=== PATIENT | female | born 1985 | race Caucasian/White ===

== ENCOUNTER 2017-01-20 14:00 | Inpatient (IN) | payer MEDICAID ==
[~2017-01-20] VITALS: Ht 152.4 cm; Wt 65.5 kg
[~2017-01-20 14:00] MED LIST: CALC-516 PO; FERR240T9 PO; PERCOCET PO; PREN-39 PO
[2017-01-23] MEDS ORDERED: OXYTOCIN 30 UNITS/LR 500 ML IV SCH (11:30)
[2017-01-23] MEDS ORDERED: CARBOPROST 250 MCG INJ IM PRN ×2 (11:30→18:00)
[2017-01-23] MEDS ORDERED: CEFAZOLIN 2 GM/50 ML (PMX) 50 ML IV SCH (11:30)
[2017-01-23] MEDS ORDERED: MISOPROSTOL 200 MCG TAB PR PRN ×2 (11:30→18:00)
[2017-01-23] MEDS ORDERED: OXYTOCIN 30 UNITS/LR 500 ML IV PRN ×2 (11:30→18:00)
[2017-01-23] MEDS ORDERED: METHYLERGONOVINE 0.2 MG INJ IM PRN ×2 (11:30→18:00)
[2017-01-23 11:46] VITALS: Ht 152.4 cm; Wt 65.5 kg
[2017-01-23 11:47] VITALS: BP 127/84; PULSE 92; RESP 18
[2017-01-23] MEDS: LACTATED RINGER'S 1,000 ML IV SCH ×4 (11:52→20:48)
[2017-01-23 12:09] LABS: BASOPHILS % 0.4 % (0.0-2.0); EOSINOPHILS # 0.1 10^3/ul (0.0-0.5); EOSINOPHILS % 1.1 % (0.0-7.0); HEMATOCRIT 34.2 % (37.0-47.0); HEMOGLOBIN 11.8 g/dl (12.0-16.0); LYMPHOCYTES # 1.5 10^3/ul (0.8-2.9); LYMPHOCYTES % 19.8 % (15.0-51.0); MEAN CORPUSCULAR HEMOGLOBIN 29.5 pg (29.0-33.0); MEAN CORPUSCULAR HGB CONC 34.5 g/dl (32.0-37.0); MEAN CORPUSCULAR VOLUME 85.5 fl (82.0-101.0); MEAN PLATELET VOLUME 9.9 fl (7.4-10.4); MONOCYTE # 0.5 10^3/ul (0.3-0.9); MONOCYTES % 6.1 % (0.0-11.0); NEUTROPHIL # 5.3 10^3/ul (1.6-7.5); NEUTROPHILS % 71.7 % (39.0-77.0); PLATELET COUNT 174 10^3/UL (140-415); RED CELL DISTRIBUTION WIDTH 12.9 % (11.5-14.5); WHITE BLOOD COUNT 7.4 10^3/ul (4.8-10.8)
[2017-01-23 12:21] LABS: INR 0.91; PROTIME 12.2 Sec (12.2-14.2)
[2017-01-23 12:22] LABS: PARTIAL THROMBOPLASTIN TIME 26.4 Sec (25.0-35.0)
[2017-01-23] MEDS ORDERED: FENTAnyl 50 MCG/ML VIAL ONE (13:48)
[2017-01-23] MEDS ORDERED: morphine SULFATE/PF (10 MG/10 ML) INJ ONE (13:48)
[2017-01-23] MEDS ORDERED: PHENYLephrine (100 MCG/ML) 5ML SYG ONE (14:04)
[2017-01-23] MEDS ORDERED: ONDANSETRON 4 MG INJ ONE (14:06)
[2017-01-23] MEDS ORDERED: DEXAMETHASONE 4 MG/ML 1 ML INJ ONE (14:07)
[2017-01-23] MEDS ORDERED: OXYTOCIN 30 UNITS/LR 500 ML IV ONE (14:48)
[2017-01-23] MEDS ORDERED: NALOXONE (0.4 MG/ML) INJ IV PRN (15:00)
[2017-01-23] MEDS ORDERED: HYDROmorphONE 0.5 MG/0.5 ML SYG IV PRN ×2 (15:00)
[2017-01-23] MEDS ORDERED: NALBUPHINE HCL (10 MG/1 ML) INJ IV PRN (15:00)
[2017-01-23] MEDS ORDERED: DIPHENHYDRAMINE 50 MG INJ IV PRN (15:00)
[2017-01-23] MEDS ORDERED: ZOLPIDEM 5 MG TAB PO PRN (15:00)
--- NOTE | 2017-01-23 15:04 | HP ---
Date/Time of Note Date/Time of Note DATE: 01/23/17 TIME: 15:00 OB - History Hx of Present Free Text/Dictation Admitted for repeat at term Last Menstrual Period: May 04, 2016 Estimated Due Date: Jan 30, 2017 : 4 Para: 3 Care: Good Care Obstetrical Complications: Other (Elevated markers including inhibin) Medical Complications: Other (Previous 2) Past Family/Social History * Past Medical, Surgical, Family and Obstetric Histories reviewed from chart. Blood Type: O+ Rubella: immune RPR/VDRL: Negative GBS Status: Negative HBsAG: Negative OB Admission Exam Vital Signs Vital Signs Vital Signs Date Time Temp Pulse Resp B/P Pulse Ox O2 Delivery O2 Flow Rate FiO2 01/23/17 11:47 97.8 92 18 127/84 98 Room Air Physical Exam HEENT: WNL Heart: Rhythm Normal Lungs: Clear, Equal Abdomen: WNL Extremities: Normal Reflexes: Normal Cervical Dilatation: None Effacement: 0% Station: -3 Membranes: Intact Heart Rate: 140's Accelerations: Accelerations Present Decelerations: No Decelerations Varibility: Marked Contractions on Admission: None Last 72 hours Lab Results CBC & BMP 01/23/17 11:40 OB Assessment/Plan Reason for admission: section Other Assessment: Term gestation Previous Desires sterilization Other plan: Repeat section and tubal ligation Patient had good awareness of nature and complications of C/S procedure including but but limited to infection and hemorrhage. Permanency and failure of tubal ligation procedure asa well as its future complications including but not limited to pelvic pain or ectopic were also clear to the patient and agreed to undergo C/S + BTL STONEY ROTHMAN MD Jan 23, 2017 15:04
--- NOTE | 2017-01-23 15:07 | OPR ---
Operative Report Planned Procedure Procedure date Jan 23, 2017 Procedure(s) Repeat section and bilateral tubal ligation Performed by see signature line Assisting provider: NICOLAS VO MD Anesthesiologist: FRANKIE KWOK DO Pre-procedure diagnosis Term gestation Previous section Desires sterilization Anesthesia Type: spinal Procedure Description Under satisfactory anaesthesia a Pfannenstiel incision was made two fingerbreadth above and parallel to the symphysis of pubis around the previous scar and previous scar was removed Incision was extended laterally to the border of the Recti muscles on either sides. Incision was carried down with sharp and blunt dissection until fascia was reached. Anterior Recti muscle fascia was incised in mid portion and incision extended laterally to the border of skin incision. Fascia was mobilized from muscle superiorly and Recti muscles were from midline using sharp and blunt dissection. Peritoneum was visualized; Avoiding bowel and bladder it was incised . Incision was extended superiorly and inferiorly. Bladder blade was placed. Posterior peritoneum covering the lower segment of the uterus and lower segment of the uterus were incised.Low transverse uterine incision was made on lower segment of the uterus. Incision extended laterally to the border of Round Lig. on either sides and baby was delivered from OT. position . Amniotic fluid appeared clear. Cord blood was obtained and cord had 3 vessels . Placenta was delivered spontaneously and appeared intact and complete. Intrauterine cavity was rubbed with a laparotomy sponge. Uterine incision was closed in 2 layers using running stitches of No1 Monocryl. Hemostasis appeared secure. Ovaries and Fallopian tubes were within normal limits. Bilateral Tubal Ligation was performed by following procedure: R fallopian tube was raised in mid portion; a Patricia clamp was placed below the fimbriae extending to proximal portion of the fallopian tube. Another clamp was placed parallel to the first and after incising the fallopian tube the stump was sutured using 0 Vicryl stitch. Hemostasis was secure . Same procedure was done on fallopian tube on the opposite side. Hemostasis appeared to be secure on ligated sites of either fallopian tubes. Announcing needle, lap sponge and instrument count to be correct abdomen was closed in layers as follows: Peritoneum and Recti muscles with running stitches of 20 Vicryl. Fascia with running stitch of No 1 PDS. Subcutaneous tissue with running stitches of 20 Chromic and skin was closed using cici. Patient tolerated the procedure well and was transferred to [facility] in good condition. Post-Procedure Post-procedure diagnosis Status post repeat and tubal ligation Findings: Live Baby Estimated blood loss: other (500 cc) Specimen(s): yes (see below) Specimen(s) description Segments of right and left fallopian tubes Grafts/Implants: no Complication(s): no Pt Condition post procedure: stable Disposition: PACU Physician Certification I, the undersigned physician, hereby certify that I have discussed the procedure described in this consent form with this patient (or the patient's legal in store representative), including: * The risk and benefits of the procedure; * Any adverse reactions that may reasonably be expected to occur; * Any alternative efficacious methods of treatment which may be medically viable ; * The potential problems that may occur during recuperation; * Potential for blood transfusion and associated risks/benefits; and * Any research or economic interest I may have regarding this treatment. I further certify that the patient/legally responsible person was encouraged to ask question and that all questions were answered. STONEY ROTHMAN MD Jan 23, 2017 15:07
[2017-01-23] MEDS: KETOROLAC 30 MG INJ IV PRN (16:21)
[2017-01-23] MEDS: ONDANSETRON 4 MG INJ IV PRN ×2 (16:23→22:45)
[2017-01-23 17:40] VITALS: BP 149/80; PULSE 74; RESP 18
[2017-01-23] MEDS: CLINDAMYCIN 300 MG CAP PO SCH (18:00)
[2017-01-23] MEDS ORDERED: NA PHOSPHATE/BIPHOS 133 ML ENEMA PR PRN (18:00)
[2017-01-23] MEDS ORDERED: HYDROCODONE/APAP (5/325) TAB PO PRN (18:00)
[2017-01-23] MEDS ORDERED: LANOLIN 7 GM TUBE TOP PRN (18:00)
[2017-01-23] MEDS ORDERED: OXYCODONE/ACETAMINOPHEN (5/325) TAB PO PRN (18:00)
[2017-01-23] MEDS: CEFAZOLIN 2 GM/50 ML (PMX) 50 ML IV SCH (18:54)
[2017-01-23 20:00] VITALS: BP 143/73; PULSE 72; RESP 18
[2017-01-23] MEDS: SENNA/DOCUSATE NA (8.6MG/50MG) TAB PO SCH (21:00)
[2017-01-24] VITALS: BP 132/67; PULSE 70; RESP 18
[2017-01-24] MEDS: CEFAZOLIN 2 GM/50 ML (PMX) 50 ML IV SCH ×2 (02:39→10:48)
[2017-01-24 04:00] VITALS: BP 127/71; PULSE 70; RESP 18
[2017-01-24] MEDS: LACTATED RINGER'S 1,000 ML IV SCH ×2 (04:31→19:00)
[2017-01-24] MEDS: CLINDAMYCIN 300 MG CAP PO SCH ×4 (06:00→17:46)
[2017-01-24 08:00] VITALS: BP 129/81; PULSE 77; RESP 18
[2017-01-24] MEDS: SENNA/DOCUSATE NA (8.6MG/50MG) TAB PO SCH ×2 (09:00→20:47)
[2017-01-24 09:13] LABS: BASOPHILS % 0.2 % (0.0-2.0); HEMATOCRIT 26.1 % (37.0-47.0); HEMOGLOBIN 8.6 g/dl (12.0-16.0); LYMPHOCYTES # 1.7 10^3/ul (0.8-2.9); LYMPHOCYTES % 15.3 % (15.0-51.0); MEAN CORPUSCULAR HEMOGLOBIN 28.4 pg (29.0-33.0); MEAN CORPUSCULAR VOLUME 86.1 fl (82.0-101.0); MEAN PLATELET VOLUME 9.8 fl (7.4-10.4); MONOCYTE # 0.7 10^3/ul (0.3-0.9); MONOCYTES % 5.9 % (0.0-11.0); NEUTROPHIL # 8.9 10^3/ul (1.6-7.5); NEUTROPHILS % 77.9 % (39.0-77.0); PLATELET COUNT 155 10^3/UL (140-415); RED BLOOD COUNT 3.03 10^6/ul (4.20-5.40); RED CELL DISTRIBUTION WIDTH 13.2 % (11.5-14.5); WHITE BLOOD COUNT 11.4 10^3/ul (4.8-10.8)
[2017-01-24] MEDS ORDERED: BISACODYL 10 MG SUPP PR ONE (10:30)
[2017-01-24] MEDS: KETOROLAC 30 MG INJ IV PRN (10:48)
[2017-01-24 12:25] VITALS: BP 127/74; PULSE 78; RESP 14
--- NOTE | 2017-01-24 16:24 | PN ---
Date/Time of Note Date/Time of Note DATE: 01/24/17 TIME: 16:22 Assessment/Plan VTE Prophylaxis VTE Prophylaxis Intervention: ambulation Lines/Catheters IV Catheter Type (from Nrsg): Peripheral IV Assessment/Plan Assessment/Plan S/P C/S POD # 1 will advance diet and ambulate 'monitor vital signs Subjective 24 Hr Interval Summary No BM passing flatus Constitutional: BM, ambulates, flatus, improved, no complaints, urine output Pain Control: well controlled Exam/Review of Systems Vital Signs Vitals Vital Signs Date Time Temp Pulse Resp B/P Pulse Ox O2 Delivery O2 Flow Rate FiO2 01/24/17 12:25 98.1 78 14 127/74 Room Air 01/23/17 11:47 98 Intake and Output 01/23/17 01/23/17 01/24/17 15:00 23:00 07:00 Intake Total 1000 ml Output Total 500 ml 450 ml 520 ml Balance 500 ml -450 ml -520 ml Exam Free Text/Dictation abdomen: soft BS +, non tendaer , slightly tender around the incision Incision Covered Constitutional: alert, oriented, well developed Psych: nl mood/affect, no complaints Head: atraumatic, normocephalic Eyes: EOMI, nl conjunctiva, nl lids, nl sclera ENMT: mucosa pink and moist, nl external ears & nose, nl lips & teeth, nl nasal mucosa & septum Neck: non-tender, supple Respiratory: clear to auscultation, normal air movement Cardiovascular: nl pulses, regular rate and rhythm Gastrointestinal: nl liver, spleen, non-tender, soft Drains none Musculoskeletal: nl extremities to inspection, nl gait and stance Extremities: normal pulses Neurological: COMMUNITY RELATIONS ADVISOR II-XII intact, nl mental status, nl speech, nl strength Skin: nl turgor, rash or lesions Lymph: nl lymph nodes Results Result Diagram: 01/24/17 0853 STONEY ROTHMAN MD Jan 24, 2017 16:24
[2017-01-24 16:56] VITALS: BP 117/63; PULSE 88; RESP 16
[2017-01-24] MEDS: IBUPROFEN 800 MG TAB PO SCH ×2 (17:46→22:36)
[2017-01-24 19:30] VITALS: BP_SYST 124; BP_SYST 140; BP_DIAS 68; BP_DIAS 73; PULSE 74; RESP 19
[2017-01-25] MEDS: CLINDAMYCIN 300 MG CAP PO SCH ×5 (00:26→23:36)
[2017-01-25] MEDS: LACTATED RINGER'S 1,000 ML IV SCH ×2 (01:36→19:35)
[2017-01-25 04:17] VITALS: BP 110/61; PULSE 68
[2017-01-25] MEDS: IBUPROFEN 800 MG TAB PO SCH ×3 (05:47→21:28)
[2017-01-25 08:00] VITALS: BP 133/78; PULSE 78; RESP 18
[2017-01-25 08:46] LABS: BASOPHILS % 0.3 % (0.0-2.0); EOSINOPHILS # 0.1 10^3/ul (0.0-0.5); EOSINOPHILS % 1.4 % (0.0-7.0); HEMATOCRIT 25.7 % (37.0-47.0); HEMOGLOBIN 8.4 g/dl (12.0-16.0); LYMPHOCYTES # 1.3 10^3/ul (0.8-2.9); LYMPHOCYTES % 16.5 % (15.0-51.0); MEAN CORPUSCULAR HEMOGLOBIN 28.7 pg (29.0-33.0); MEAN CORPUSCULAR HGB CONC 32.7 g/dl (32.0-37.0); MEAN CORPUSCULAR VOLUME 87.7 fl (82.0-101.0); MEAN PLATELET VOLUME 9.7 fl (7.4-10.4); MONOCYTE # 0.4 10^3/ul (0.3-0.9); MONOCYTES % 5.7 % (0.0-11.0); NEUTROPHIL # 5.8 10^3/ul (1.6-7.5); NEUTROPHILS % 75.5 % (39.0-77.0); PLATELET COUNT 165 10^3/UL (140-415); RED BLOOD COUNT 2.93 10^6/ul (4.20-5.40); RED CELL DISTRIBUTION WIDTH 13.5 % (11.5-14.5); WHITE BLOOD COUNT 7.7 10^3/ul (4.8-10.8)
[2017-01-25] MEDS: SENNA/DOCUSATE NA (8.6MG/50MG) TAB PO SCH ×2 (09:37→21:28)
[2017-01-25 16:00] VITALS: BP 126/77; PULSE 83; RESP 18
--- NOTE | 2017-01-25 16:45 | DS ---
Date/Time of Note Date/Time of Note Home on 01/26/2070 DATE: 01/25/17 TIME: 16:44 Obstetrical Discharge Record Final Diagnosis Final Diagnosis: Term delivered Other Final Diagnosis Status post repeat and tubal ligation Vaginal Delivery Obstetrical Delivery: Bilateral Tubal Ligation Section Section: Repeat Condition on Discharge Physical Assessment Last Vitals: See nurse's notes Voiding: Yes Bowel Movement: Yes Breast: Soft, non-tender, Filling Fundus: Firm Abdomen and Incision: Abdomen is soft and nontender Abdomen is not distended, slight tenderness around incision felt Incision is dry without induration and or erythema is healing well Episiotomy: Not applicable Calf Tenderness: No Patient Condition: Good STONEY ROTHMAN MD Jan 25, 2017 16:45
--- NOTE | 2017-01-25 16:46 | DS ---
Date/Time of Note Date/Time of Note DATE: 01/25/17 TIME: 16:45 Discharge Summary Admission/Discharge Info Admit Date/Time Jan 23, 2017 at 11:04 Discharge Date/Time January 26, 2017 Discharge Diagnosis Status post repeat and tubal ligation Patient Condition: Good Procedures Repeat delivery and tubal ligation Hx of Present Illness 31-year-old female underwent repeat section and tubal ligation Hospital Course Uncomplicated Home Meds Active Scripts Oxycodone Hcl/Acetaminophen (Percocet) 1 Tab Tab, 2 TAB PO Q4H Y for PAIN LEVEL 6-10, #30 TAB 0 Refills Prov:STONEY ROTHMAN MD 03/10/15 Reported Medications Calcium Carbonate/Vitamin D3 (OYSTER SHELL CALCIUM TABLET) 1 Each Tablet, 1 EACH PO DAILY, TAB 03/07/15 Ferrous Gluconate (Iron) 1 Tab Tablet, 1 TAB PO DAILY, TAB 03/07/15 Vits W-Ca,Fe,Fa(<1MG) ( Vitamins) 1 Tab Tablet, 1 TAB PO DAILY , TAB 03/07/15 Follow-up Plan To 3 days in clinic for staple removal Primary Care Provider Care Physician No Primary Time spent on discharge: > 30 minutes Pending Labs Laboratory Tests Test 01/25/17 07:39 White Blood Count 7.710^3/ul (4.8-10.8) Red Blood Count 2.9310^6/ul (4.20-5.40) Hemoglobin 8.4g/dl (12.0-16.0) Hematocrit 25.7% (37.0-47.0) Mean Corpuscular Volume 87.7fl (82.0-101.0) Mean Corpuscular Hemoglobin 28.7pg (29.0-33.0) Mean Corpuscular Hemoglobin Concent 32.7g/dl (32.0-37.0) Red Cell Distribution Width 13.5% (11.5-14.5) Platelet Count 14582^3/UL (140-415) Mean Platelet Volume 9.7fl (7.4-10.4) Neutrophils % 75.5% (39.0-77.0) Lymphocytes % 16.5% (15.0-51.0) Monocytes % 5.7% (0.0-11.0) Eosinophils % 1.4% (0.0-7.0) Basophils % 0.3% (0.0-2.0) Nucleated Red Blood Cells % 0.0/100WBC (0.0-0.0) Neutrophils # 5.810^3/ul (1.6-7.5) Lymphocytes # 1.310^3/ul (0.8-2.9) Monocytes # 0.410^3/ul (0.3-0.9) Eosinophils # 0.110^3/ul (0.0-0.5) Basophils # 0.010^3/ul (0.0-0.1) Nucleated Red Blood Cells # 0.010^3/ul (0.0-0.0) STONEY ROTHMAN MD Jan 25, 2017 16:46
[2017-01-25] MEDS ORDERED: IBUP800T25 PO (16:48)
--- NOTE | 2017-01-25 16:48 | PD.PPDC ---
L[employer] EXAMINER Discharge Instruction Provider Information Physician Information 31-year-old female had repeat and tubal ligation Diagnosis Final Diagnosis: Status post repeat and tubal ligation Condition Patient Condition: Good Diet Diet: Resume Regular Diet Activity/Restrictions Activity: July Shower Restrictions: No Exercising No Lifting Nothing in the Vagina Return to Work or School: Mar 24, 2017 Follow-up Follow-up with Physician: 2, 3, Day/Days (In clinic for staple removal) Return to clinic for OB Instructions: Breast Tenderness Depression Comment: Refer to clinic or emergency room in case of fever and chills, incision and drainage and or erythema, and excessive vaginal bleeding STONEY ROTHMAN MD Jan 25, 2017 16:48
[2017-01-25 19:40] VITALS: BP 125/73; PULSE 86; RESP 19
[2017-01-26] MEDS: LACTATED RINGER'S 1,000 ML IV SCH (01:36)
[2017-01-26 03:40] VITALS: BP 133/79; PULSE 89; RESP 18
[2017-01-26] MEDS: CLINDAMYCIN 300 MG CAP PO SCH ×2 (05:34→12:22)
[2017-01-26] MEDS: IBUPROFEN 800 MG TAB PO SCH ×2 (05:34→14:22)
[2017-01-26 08:30] VITALS: BP 126/70; RESP 18
[2017-01-26] MEDS ORDERED: DIPHTH/TET/ACEL PERTUSS (ADULT) 0.5 ML VIAL IM* ONE (09:00)
[2017-01-26] MEDS: SENNA/DOCUSATE NA (8.6MG/50MG) TAB PO SCH (09:26)
== END 2017-01-26 15:39 | disposition home or self-care (01) | DRG 766 ==
LOC: L-D 01-23 11:04 → PP1 01-23 17:34
PROVIDERS: ADMIT Obstetrics & Gynecology; ATTEND Obstetrics & Gynecology
PROC: 0UL70ZZ Occlusion of Bilateral Fallopian Tubes, Open Approach (ICD-10-PCS; 2017-01-23)
PROC: 3E0P3VZ Introduction of Hormone into Female Reproductive, Percutaneous Approach (ICD-10-PCS; 2017-01-23)
PROC: 10D00Z1 Extraction of Products of Conception, Low, Open Approach (ICD-10-PCS; principal; 2017-01-23 13:00)
DX: O34.211 Maternal care for low transverse scar from previous cesarean delivery (principal); Z30.2 Encounter for sterilization; Z37.0 Single live birth; Z3A.38 38 weeks gestation of pregnancy
CPT/HCPCS: 85025; 85610; 85730; 86592; 86850; 86900; 86901; 87340; 88302; 90715; 99464; J0690; J1100; J1885; J2274; J2370; J2405; J2590; J3010; J7120